=== PATIENT | female | born 1940 | race Caucasian/White ===

== ENCOUNTER 2017-11-04 16:36 | Emergency (ER) | payer MEDICARE, SELFPAY ==
--- NOTE | 2017-11-04 16:48 | DI.RAD.S_ITS ---
PROCEDURE: XR ANKLE RT MIN 3V INDICATIONS: injury TECHNIQUE: 3 views of the ankle were acquired. COMPARISON: None. FINDINGS: Bones: Moderately displaced oblique fracture of the distal fibula. Medial ankle mortise widening. No suspicious bony lesions. Soft tissues: No tibiotalar joint effusion. Achilles tendon appears normal. IMPRESSION: 1. Distal fibular fracture. 2. Deltoid ligament tear. Dictated by: Gustabo Tafoya M.D. on 11/04/2017 at 17:19 Approved by: Gustabo Tafoya M.D. on 11/04/2017 at 17:20
[2017-11-04 16:50] VITALS: BP 132/104; PULSE 76; RESP 20; TEMP 36.7; O2SAT 96
[2017-11-04 17:00] VITALS: PULSE 75
--- NOTE | 2017-11-04 17:15 | ED_ITS ---
HPI - Extremity Injury (Lower) General Chief Complaint: Extremity Injury, Upper Stated Complaint: GROUND LEVEL FALL Time Seen by Provider: 11/04/17 16:49 Source: patient Mode of arrival: EMS Limitations: no limitations History of Present Illness HPI Narrative: 77-year-old female presents after she tripped and fell down an embankment on [place] while watering her brothers and experienced severe right lower extremity pain. She did not pass out and did not hit her head. She is not on blood thinners. She complains only of pain and swelling in the right lower extremity. No previous history of injury. She is currently seeing Dr. Carter for her orthopedic needs. Related Data Home Medications Medication Instructions Recorded Confirmed HYDROCHLOROTHIAZIDE (#HCTZ) 25 mg PO QDAY #0 12/27/10 VITAMIN D (Vitamin D3) #0 12/27/10 amlodipine 10 mg PO Q DAY #0 12/27/10 aspirin 81 mg PO QDAY #0 12/27/10 pravastatin 40 mg PO QDAY #0 12/27/10 ascorbic acid (vitamin C) 1,000 mg PO DAILY #0 05/02/17 coenzyme Q10 [Co Q-10] 100 mg PO Q DAY #0 05/23/17 Previous Rx's Medication Instructions Recorded ondansetron HCl [Zofran] 4 mg PO Q6H PRN #20 tab 11/04/17 oxycodone-acetaminophen [Percocet] 2 tab PO Q4-6H PRN #20 tab 11/04/17 Allergies Allergy/AdvReac Type Severity Reaction Status Date / Time Penicillins [PENICILLINS] Allergy Unknown CHILDHOOD-UNSURE Verified 11/04/17 17: 24 OF RXN latex [LATEX] AdvReac Severe RASH, Verified 11/04/17 17:24 EDEMA, BLISTERS Review of Systems Review of Systems All systems reviewed & are unremarkable except as noted in HPI and below Constitutional Denies chills, Denies fever(s), Denies lethargy and Denies weakness Eyes Denies change in vision, Denies eye discharge, Denies irritation and Denies loss of vision ENT Ears, Nose, Mouth, and Throat: Denies change in voice, Denies neck pain and Denies sore throat Cardiovascular Denies chest pain, Denies irregular heart rhythm, Denies lightheadedness, Denies palpitations, Denies dyspnea, Denies dyspnea on exertion and Denies orthopnea Respiratory Denies cough, Denies dyspnea, Denies dyspnea on exertion and Denies wheezing Gastrointestinal Gastrointestinal: Denies abdominal pain, Denies change in bowel habits, Denies diarrhea, Denies nausea and Denies vomiting Genitourinary Denies hematuria, Denies flank pain, Denies urinary incontinence and Denies urinary urgency Musculoskeletal Denies neck pain Comments: Right ankle pain and swelling Integumentary/Breasts Denies pruritus, Denies erythema, Denies rash and Denies wounds Neurologic Denies confusion, Denies loss of vision and Denies weakness Psychiatric Denies anxiety, Denies confusion, Denies depression, Denies homicidal ideation and Denies suicidal ideation Endocrine Denies palpitations Hematologic/Lymphatic Denies easy bruising Allergic/Immunologic Denies wheezing [facility] Social History Smoking Status: Never smoker Exam Initial Vital Signs Initial Vital Signs: Vital Signs Temperature 98.1 F 11/04/17 16:50 Pulse Rate 76 11/04/17 16:50 Respiratory Rate 20 11/04/17 16:50 Blood Pressure 132/104 H 11/04/17 16:50 Pulse Oximetry 96 11/04/17 16:50 Const General: cooperative and well developed Nutritional Appearance: well nourished Orientation: alert, awake, oriented x3 and not confused HENCO Head: normocephalic and atraumatic Ears: external ears normal and TM's normal bilaterally Nose: external nose normal and No nasal discharge Face and sinus: sinuses nontender, face symmetric, no sinus tenderness and No dry mucous membranes Mouth: oral mucosae normal and moist mucous membranes Teeth and gingiva: dentition normal Throat: tonsils normal and uvula midline Eyes General: appearance normal, both eyes and all related structures Eyelids: eyelids normal Conjunctivae: conjunctivae normal Sclera: sclerae normal Pupils: PERRL EOM: EOM intact bilaterally Neck Neck: normal visual inspection, trachea midline, No lymphadenopathy, No midline deformity and No JVD Lymphatic: No lymphedema Chest Chest: normal inspection of the chest Resp Effort & Inspection: normal respiratory effort, able to speak in complete sentences, no respiratory distress and no use of accessory muscles Auscultation: clear to auscultation bilaterally, no rales, no rhonchi and no wheezes Cardio Rate: regular rate Rhythm: regular rhythm Heart Sounds: no click, no gallops, no murmurs and no rubs Pulses: normal peripheral pulses GI Inspection: non-distended Palpation: soft, no hepatosplenomegaly, No guarding, No pulsatile mass and No tender Auscultation: normal bowel sounds Back/Spine/Pelvis Back: No CVA tenderness Cervical Spine: cervical ROM normal and No pain with cervical ROM Thoracic/Lumbar Spine: thoracic and lumbar spine normal to inspection Skin General: no rashes or lesions noted, No jaundice and No petechiae Neuro General: alert, oriented x3, gait normal and no focal motor deficits Cranial Nerves: CN's II-XI intact bilaterally Speech: speech normal Motor: strength 5/5 throughout Sensory Exam: no sensory deficits noted Extrem Other: Right ankle swelling and tenderness of bilateral malleoli. Painful range of motion of the ankle. No obvious deformity. Bilateral bruising present. Distally she is neurologically and vascularly intact. 2/4 dorsalis pedis and posterior tib pulses are palpable. She is able to move her toes, there are no sensory deficits Psych Appearance: well kempt Mental Status: mental status grossly normal Attitude: cooperative Thought Content: normal and suicidality Judgment: judgment good Course Orders Ordered: ED Orders 11/04/17 16:48 XR ankle RT min 3V Stat Discontinued Medications Hydrocodone Bitart/Acetaminophen (Vernon 10/325) 1 tab PO NOW ONE Stop: 11/04/17 17:16 Hydrocodone Bitart/Acetaminophen (Vernon 5/325) 2 tab PO NOW ONE Stop: 11/04/17 17:30 Last Admin: 11/04/17 17:32 Dose: 2 tab Ketorolac Tromethamine (Toradol) 30 mg IM NOW ONE Stop: 11/04/17 18:16 Ondansetron HCl (Zofran Odt) 4 mg PO NOW ONE Stop: 11/04/17 17:16 Last Admin: 11/04/17 17:27 Dose: 4 mg Oxycodone/Acetaminophen (Percocet 5/325) 2 tab PO NOW ONE Stop: 11/04/17 18:16 Consultations Consultation #1: After paging 3 times, Dr. Rhona Chandler returned my call, and does feel the patient can be safely discharged with a stirrup splint with posterior component as long as there is no sign of dislocation. Patient prefers to have surgery performed by Dr. Carter. Patient was rechecked shortly after and complains that she is still having pain. Given Toradol and Percocet. Discussed discharge planning. Time: 18:21 Vital Signs - 8 hr 11/04/17 16:50 11/04/17 17:00 Temperature 98.1 F Pulse Rate 76 Pulse Rate [Right Dorsalis Pedis] 75 Respiratory Rate 20 Blood Pressure 132/104 H Pulse Oximetry 96 MDM - Extremity Injury (Lower) Differential Diagnosis Likely ankle sprain and strain and ankle fracture Medical Records Attestation: I reviewed the patient's medical records. Imaging Data ankle xray: Radiologist's impression: PROCEDURE: XR ANKLE RT MIN 3V INDICATIONS: injury TECHNIQUE: 3 views of the ankle were acquired. COMPARISON: None. FINDINGS: Bones: Moderately displaced oblique fracture of the distal fibula. Medial ankle mortise widening. No suspicious bony lesions. Soft tissues: No tibiotalar joint effusion. Achilles tendon appears normal. IMPRESSION: 1. Distal fibular fracture. 2. Deltoid ligament tear. Dictated by: Gustabo Tafoya M.D. on 11/04/2017 at 17:19 Approved by: Gustabo Tafoya M.D. on 11/04/2017 at 17:20 [facility] Narrative Medical decision making narrative: 77-year-old female presents after mechanical fall. She was flighted in from [place]. I discussed staying overnight and having surgery performed versus having it done follow up with Dr. Carter. Patient would like to see Dr. Carter. Discussed with Dr. Chandler who is agreeable that with proper splinting patient can go home. Advised elevation of the leg and follow up on Monday. She is distally neurologically and vascular intact Discharge Plan Departure Patient Disposition: Home, Self-Care Clinical Impression: Ankle fracture, Fall Instructions: DI for Ankle Fracture Activity Restrictions/Additional Instructions: Thank you for trusting us with your care today. You have an ankle fracture that will require surgery. Wear the splint made for you today and continue nonweightbearing until your orthopedic followup. Use a wheelchair or walker as needed for support. Take percocet as needed for pain. Call Dr. Lomeli on Monday to arrange a followup. Keep your leg elevated above your heart while at home. Prescriptions: New ondansetron HCl [Zofran] 4 mg tablet 4 mg PO Q6H PRN (Reason: nausea and vomiting) Qty: 20 RF: 0 oxycodone-acetaminophen [Percocet] 5-325 mg tablet 2 tab PO Q4-6H PRN (Reason: pain) Qty: 20 RF: 0 No Action amlodipine 10 MG tablet 10 mg PO Q DAY Qty: 0 RF: 0 aspirin 81 MG tablet,delayed release (DR/EC) 81 mg PO QDAY Qty: 0 RF: 0 VITAMIN D (Vitamin D3) Qty: 0 RF: 0 pravastatin 40 MG tablet 40 mg PO QDAY Qty: 0 RF: 0 HYDROCHLOROTHIAZIDE (#HCTZ) 25 mg PO QDAY Qty: 0 RF: 0 ascorbic acid (vitamin C) 500 mg Tablet 1,000 mg PO DAILY Qty: 0 RF: 0 coenzyme Q10 [Co Q-10] 100 MG capsule 100 mg PO Q DAY Qty: 0 RF: 0 Referrals: Brett Carter MD [Physician] -
[2017-11-04] MEDS: ONDANSETRON 4 MG ODT PO (17:27)
[2017-11-04] MEDS: HYDROCODONE/ACET 5/325 TABLET 2 TAB PO (17:32)
[2017-11-04] MEDS: OXYCODONE/ACETAMINOPHEN 5/325 TABLET 2 TAB PO (18:52)
[2017-11-04] MEDS: OXYCODONE/APAP 5/325 PREPACK 1 BOTTLE MISC (20:00)
--- NOTE | 2017-11-04 20:06 | PC.NURSE ---
dr. nunez verified placement and sensation of splint.
[2017-11-04 20:09] VITALS: BP 134/70; PULSE 78; RESP 18; O2SAT 98
== END 2017-11-04 19:10 | disposition home or self-care (01) ==
PROVIDERS: Emergency Provider Emergency Medicine
DX: S82.831A Other fracture of upper and lower end of right fibula, initial encounter for closed fracture (principal); S93.421A Sprain of deltoid ligament of right ankle, initial encounter; W19.XXXA Unspecified fall, initial encounter
CPT/HCPCS: 29505; 29515; 36591; 73610; 99282; 99283

== ENCOUNTER → 2019-03-15 10:44 | Outpatient (CLI) | payer MEDICARE, SELFPAY ==
--- NOTE | 2019-03-15 | DI.MRI.S_ITS ---
PROCEDURE: MR KNEE RT W CON INDICATIONS: Right knee internal derangement TECHNIQUE: After the administration of 50 mL of dilute intra-articular Gadolinium contrast, sagittal T1 spin echo with fat saturation and PD fast spin echo with fat saturation, coronal T1 spin echo with and without fat saturation, coronal T2 fast spin echo with fat saturation, axial PD fast spin echo with fat saturation through the knee. COMPARISON: [facility], CR, XR KNEE ARTHRITIC SERIES RT, 04/30/2018, 9:20. FINDINGS: Image quality: Excellent. Menisci: Poorly defined tear involving the body and posterior horn of the medial meniscus, with partial extrusion. Lateral meniscus appears intact. Cruciate ligaments: The anterior and posterior cruciate ligaments appear intact. Medial structures: The medial collateral ligament appears intact. Semimembranosus tendon appears mildly thickened with intrasubstance T2 hyperintensity. Visualized portions of the pes anserinus tendons appear normal. No abnormal bursal fluid. Lateral structures: The lateral collateral ligament demonstrates thickening and intrasubstance signal change in keeping with low grade sprain, statistically chronic, although technically age indeterminate. The biceps femoris tendon appears intact. Popliteus tendon grossly unremarkable. Iliotibial band appears intact. Anterior structures: Quadriceps tendon intact. Medial and lateral patellofemoral ligaments intact. There is mild patellar tendinopathy. Prepatellar and superficial infrapatellar subcutaneous edema/fluid. Bone and cartilage: No focal marrow contusion or discrete low signal fracture line. Within the medial compartment, diffuse partial-thickness loss of the tibial cartilage and near full-thickness central femoral cartilage loss Within the lateral compartment, fissuring and surface fraying of the central weightbearing tibial cartilage. Mild diffuse partial-thickness loss of the femoral cartilage Within the patellofemoral compartment, near full-thickness loss of curvature alignment and medial patellar facet and partial-thickness loss of the remaining patellar cartilage. Diffuse mild partial-thickness loss of the femoral trochlear cartilage Joint space: No Barnett's cyst. Normal appearing synovial plicae are incidentally noted. No intra-articular bodies. IMPRESSION: Poorly defined tear involving the body and posterior horn of the medial meniscus with partial extrusion. Semimembranosus insertional tendinopathy. Mild patellar tendinopathy and adjacent soft tissue edema/fluid. Mild joint degeneration as above. No evidence of intra-articular loose bodies. Dictated by: Vishnu Yates M.D. on 03/15/2019 at 13:55 Approved by: Vishnu Yates M.D. on 03/15/2019 at 14:05
--- NOTE | 2019-03-15 | DI.RAD.S_ITS ---
PROCEDURE: FL KNEE INJECTION MR/CT RT INDICATIONS: Right knee internal derangement TECHNIQUE: The indications, alternatives, benefits, risks, and complications of the procedure were explained to the patient. Written informed consent was obtained and placed in the chart. The knee was examined fluoroscopically, and a site chosen for knee joint injection. The skin was prepped and draped in a sterile fashion, and 1% Lidocaine infiltrated from the skin down to the articular surface. A hypodermic needle was then introduced into the joint and iodinated contrast media was instilled to confirm the intra-articular needle tip placement. This was followed by approximately 50 mL dilute solution of a gadolinium containing MR contrast agent. The needle was removed and a bandage was applied. An Danish wrap was then applied around the knee joint to keep the contrast from collecting in the suprapatellar recess. The patient experienced no complications throughout the procedure and left the fluoroscopic suite in no apparent distress. FINDINGS: Single fluoroscopic spot image demonstrates intra-articular location to injected iodinated contrast. IMPRESSION: Successful fluoroscopically guided administration of dilute Gadolinium solution into the knee joint for MR arthrogram. Dictated by: Vishnu Yates M.D. on 03/15/2019 at 15:42 Approved by: Vishnu Yates M.D. on 03/15/2019 at 15:43
== END ==
PROVIDERS: PCP Family Medicine; Visit Provider Orthopaedic Surgery
DX: S83.241A Other tear of medial meniscus, current injury, right knee, initial encounter (principal); M17.11 Unilateral primary osteoarthritis, right knee; M67.961 Unspecified disorder of synovium and tendon, right lower leg
CPT/HCPCS: 27369; 73722; 77002

== ENCOUNTER → 2021-01-01 09:46 | Outpatient (CLI) | payer MEDICARE, SELFPAY ==
--- NOTE | 2021-01-01 09:49 | DI.US.S_ITS ---
ULTRASOUND OF LEFT BREAST: 01/01/2021 CLINICAL: Palpable left axilla lump. Comparison is made to exams dated: 04/22/2014 mammogram, 04/22/2014 ultrasound biopsy, 04/07/2014, 03/31/2014 mammogram, and 03/29/2013 mammogram - [facility]. Color flow and real-time ultrasound of the left breast were performed. Umanzor scale images of the real-time examination were reviewed. The patient is status post mastectomy left breast. There is a 6.1 cm x 2.9 cm x 3.5 cm wider than tall oval mass in the left axilla. This oval mass is hypoechoic. This correlates as palpated and with area of clinical concern. Color flow imaging demonstrates that there is vascularity present. IMPRESSION: SUSPICIOUS OF MALIGNANCY The 6.1 cm x 2.9 cm x 3.5 cm wider than tall oval mass is consistent with a suspicious enlarged lymph node and is suspicious of malignancy. An ultrasound guided biopsy is recommended. Findings and recommendations were discussed with the patient by Dr. Richter during today's examination. This exam was interpreted at Station ID: [id number]. Electronically Signed By: Brayden Mccormick M.D. aty/:01/01/2021 13:57:43 letter sent: Biopsy Required Ultrasound BI-RADS: 4 Suspicious for malignancy
[2021-01-01 10:15] LABS: Add Manual Diff / Slide Review NO; Basophils Absolute Auto 100 /uL (0-100); Basophils Percent Auto 1.1 % (0-2); Eosinophils Absolute Auto 100 /uL (0-450); Eosinophils Percent Auto 1.7 % (2-4); Hematocrit 40.8 % (36-46); Hemoglobin 13.8 g/dL (12.0-16.0); Lymphocytes Absolute Auto 2000 /uL (1100-4500); Lymphocytes Percent Auto 26.1 % (25-40); Mean Corpuscular HGB Conc 33.9 % (30-36); Mean Corpuscular Hemoglobin 29.7 PG (26-34); Mean Corpuscular Volume 87.7 fL (80-100); Monocytes Absolute Auto 700 /uL (0-900); Monocytes Percent Auto 8.8 % (3-14); Neutrophils Absolute Auto 4800 /uL (1500-7000); Neutrophils Percent Auto 62.3 % (50-75); Platelet Count 782 X10^3/uL (150-400); Red Blood Cell Count 4.66 X10^6/uL (4.0-5.2); Red Cell Distribution Width 13.5 % (11.6-14.8); White Blood Cell Count 7.7 X10^3/uL (4.5-11.0)
[2021-01-01 10:31] LABS: Platelet Estimate Increased on smear
[2021-01-01 10:36] LABS: Alanine Aminotransferase 24 IU/L (<35); Albumin 4.2 g/dL (3.5-5.0); Albumin Globulin Ratio 1.2 (1.0-2.8); Alkaline Phosphatase 83 U/L (38-126); Aspartate Aminotransferase 26 IU/L (14-36); BUN Creatinine Ratio 27.4 (6-22); Bilirubin Total 0.4 mg/dL (0.2-1.3); Blood Urea Nitrogen 17 mg/dL (7-17); Calcium 9.8 mg/dL (8.4-10.2); Carbon Dioxide 30 mmol/L (22-32); Chloride 104 mmol/L (98-107); Estimated Glomerular Filt Rate > 60.0 mL/min (>60); Globulin 3.4 g/dL (1.7-4.1); Glucose 110 mg/dL (80-110); HEMOLYSIS < 15 (0-50); Potassium 3.8 mmol/L (3.4-5.1); Sodium 140 mmol/L (137-145); Total Protein 7.6 g/dL (6.3-8.2)
[2021-01-01 10:37] LABS: Erythrocyte Sedimentation Rate 23 MM/HR (0-20)
[2021-01-01 11:11] LABS: Ferritin 30 ng/mL (11-264)
[2021-01-02 06:43] LABS: CA 15-3 10.1 U/mL (0.0-25.0)
== END ==
PROVIDERS: PCP Family Medicine; Referring Provider Internal Medicine Medical Oncology; Visit Provider Internal Medicine Medical Oncology
DX: D47.3 Essential (hemorrhagic) thrombocythemia (principal); N63.32 Unspecified lump in axillary tail of the left breast; Z85.3 Personal history of malignant neoplasm of breast; Z90.12 Acquired absence of left breast and nipple
CPT/HCPCS: 36415; 76882; 80053; 81270; 81402; 82728; 85025; 85651; 86300

== ENCOUNTER → 2021-01-15 12:53 | Outpatient (CLI) | payer MEDICARE, SELFPAY ==
--- NOTE | 2021-01-15 | PATH_ITS ---
[facility] Accession Number: [id number] . 01 Material submitted: . AXILLARY - LEFT AXILLARY MASS . 01 Clinical history: . LOCALIZED SWELLING, MASS AND LUMP, LEFT UPPER LIMB . 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 See comment for predictive marker results. [facility] 01/20/2021 1657 Local . 01 Comment: Predictive marker immunohistochemical studies are performed on block A1 with the invasive carcinoma showing the following results: . Estrogen receptor (SP1): Positive (greater than 95%, strong intensity). Progesterone receptor (1E2): Positive (greater than 95%, strong intensity). Her2 (4B5): Negative for overexpression (0). . An immunostain to the breast marker, BAMBI-3, is performed to confirm the clinical suspicion of metastatic breast carcinoma and shows uniform expression. . Internal controls for ER and VA are not present; false negative results cannot be excluded. Cold ischemic time and formalin fixation time is not provided. The scoring criteria for breast biomarkers by immunohistochemistry is based on the ASCO/CAP guidelines (Preston AC et al, J Clin Oncol: 2018 Dec 26;36(20):0136-2126 and Neeraj ME et al, Arch Pathol Lab Med: 2009;134(6):907-22). Deparaffinized sections of formalin fixed tissue (along with appropriate positive controls) are incubated with the above antibody(s). Using the automated [place] stainer, tissue is incubated with the designated antibody which is then localized by a non-biotin, dual polymer detection system. The external controls are reviewed for appropriate reactivity and found to be adequate. Results on the target cell population are indicated above. These tests have not been validated on decalcified tissue. This test was developed and its performance characteristics determined by [employer]. It has not been cleared or approved by the U.S. Food and Drug Administration. The FDA has determined that such clearance or approval is not necessary. This test is used for clinical purposes. It should not be regarded as investigational or for research. . The preliminary results of this case are discussed by Dr. Ta with Dr. Griffin on 01/20/2021 at 12:10 PM. He confirms that the patient has a history of a left breast carcinoma, diagnosed a few years ago. . 01 Electronically signed: . Carol Ann Ta MD, Pathologist NPI- [id number] . 01 Gross description: . The specimen is received in formalin, labeled soft tissue mass, and consists of multiple magana cores of soft tissue ranging from 0.2 cm to 1.5 cm in length by 0.1 cm in diameter. The specimen is entirely submitted in cassette A1. (EA:[id number]) /[facility] 01/16/[address] [place] [address] . 01 Pathologist provided ICD-10: R22.32 . 01 CPT . 622656, [id number], 426089, 054882, [id number] Performed at: 01 [facility] [address] [place] [address] [address] [facility], [place], [place] [id number] MD Brett Mena MD Phone: [phone]
--- NOTE | 2021-01-15 | DI.MG.S_ITS ---
UNILATERAL LEFT DIGITAL DIAGNOSTIC MAMMOGRAM 3D/2D POST-PROCEDURE IMAGING FOR MARKER PLACEMENT: 01/15/2021 CLINICAL: Left post clip. Comparison is made to exams dated: 01/01/2021 ultrasound, 04/22/2014 mammogram, and 04/22/2014 ultrasound [facility]. The tissue of left breast is predominantly fatty. There is a marker clip in the appropriate position in the left axillary tail which is only partially visualized due to location. This marker clip placement is at the biopsy site. IMPRESSION: POST PROCEDURE MAMMOGRAM FOR MARKER PLACEMENT There was a successful marker clip placement in the left axillary tail. This exam was interpreted at Station ID: [id number]. NOTE: For mammograms, a report in lay terms will be sent to the patient. Approximately 15% of breast malignancies will not be visualized mammographically. In the management of a palpable breast mass, a negative mammogram must not discourage biopsy of a clinically suspicious lesion. Electronically Signed By: Vishun silva/:01/15/2021 16:06:29 ACR BI-RADS Category Post-procedure mammogram for marker placement
--- NOTE | 2021-01-15 12:56 | DI.US.S_ITS ---
ULTRASOUND GUIDED BIOPSY LEFT BREAST WITH MARKING DEVICE INSERTED AND POST DIGITAL MAMMOGRAPHIC IMAGIN01/15/2021 CLINICAL: Left axillary node biopsy. PATIENT CONSENT: Risks (minor bleeding, infection, vasovagal reaction and repeat procedure), benefits and alternatives were explained to the patient and written informed consent was obtained. Correlation is made to exam dated: 01/01/2021 [facility]. An ultrasound guided biopsy using real-time ultrasound was performed for the 6.1 cm x 2.9 cm x 3.5 cm mass located in the left axillary tail. The skin was prepped in the usual manner. Local anesthetic was administered to the access site. A small incision was made in the breast. The abnormality was approached from the lateral aspect. A biopsy needle was placed adjacent to the abnormality under ultrasound guidance. Once the needle was documented to be in the correct location, four specimens were obtained using a BARD biopsy device. The patient received additional local anesthetic during the procedure. A vision clip was inserted into the biopsy cavity. The specimens were sent to the laboratory for pathological analysis. IMPRESSION: ULTRASOUND GUIDED BIOPSY MALIGNANT Ultrasound guided biopsy of the 6.1 cm mass in the left axillary tail was successful. Pathology demonstrate Metastatic adenocarcinoma. Pathology results are concordant with imaging findings. A surgical/oncologic consultation is recommended. This exam was interpreted at Station ID: [id number]. Vishnu silva,slc/:01/21/2021 11:55:04
== END ==
PROVIDERS: PCP Family Medicine; Referring Provider Internal Medicine Medical Oncology; Visit Provider Internal Medicine Medical Oncology
DX: C50.612 Malignant neoplasm of axillary tail of left female breast (principal); Z17.0 Estrogen receptor positive status [ER+]
CPT/HCPCS: 38505; 76942; 77065

== ENCOUNTER → 2021-02-02 10:34 | Outpatient (CLI) | payer MEDICARE, SELFPAY ==
--- NOTE | 2021-02-02 | DI.MG.S_ITS ---
UNILATERAL RIGHT DIGITAL SCREENING MAMMOGRAM 3D/2D WITH CAD POST MASTECTOMY WITH AUGMENTATION: 02/02/2021 CLINICAL: Routine screening. Breast cancer. Comparison is made to exams dated: 03/31/2014 mammogram and 03/29/2013 mammogram - [facility]. The tissue of right breast is predominantly fatty. Current study was also evaluated with a Computer Aided Detection (CAD) system. Right breast implant is present. No significant masses, calcifications, or other findings are seen in the breast. IMPRESSION: NEGATIVE There is no mammographic evidence of malignancy. A 1 year screening mammogram is recommended. This exam was interpreted at Station ID: [id number]. NOTE: For mammograms, a report in lay terms will be sent to the patient. Approximately 15% of breast malignancies will not be visualized mammographically. In the management of a palpable breast mass, a negative mammogram must not discourage biopsy of a clinically suspicious lesion. Electronically Signed By: Raulito artis/milind:02/02/2021 11:22:09 letter sent: Normal Exam ACR BI-RADS Category 1: Negative [id number]
== END ==
PROVIDERS: PCP Family Medicine; Referring Provider Family Medicine; Visit Provider Family Medicine
DX: Z12.31 Encounter for screening mammogram for malignant neoplasm of breast (principal); Z85.3 Personal history of malignant neoplasm of breast
CPT/HCPCS: 77063; 77067

== ENCOUNTER → 2023-04-25 08:09 | Outpatient (CLI) | payer MEDICARE, SELFPAY ==
--- NOTE | 2023-04-25 | DI.MG.S_ITS ---
UNILATERAL RIGHT DIGITAL SCREENING MAMMOGRAM 3D/2D WITH CAD POST MASTECTOMY WITH AUGMENTATION: 04/25/2023 CLINICAL: Routine screening. Personal history of left breast cancer. family history of breast cancer. Comparison is made to exams dated: 02/02/2021 mammogram, 01/15/2021 mammogram, and 04/22/2014 mammogram - [facility]. The right breast is almost entirely fatty (category a/<25% glandular tissue). Current study was also evaluated with a Computer Aided Detection (CAD) system. Right breast implant is stable. No significant masses, calcifications, or other findings are seen in the breast. There has been no significant interval change. IMPRESSION: NEGATIVE There is no mammographic evidence of malignancy. A 1 year screening mammogram is recommended. This exam was interpreted at Station ID: [id number]. NOTE: For mammograms, a report in lay terms will be sent to the patient. Approximately 15% of breast malignancies will not be visualized mammographically. In the management of a palpable breast mass, a negative mammogram must not discourage biopsy of a clinically suspicious lesion. Electronically Signed By: Lb hensley/milind:04/25/2023 13:31:46 letter sent: Normal Exam ACR BI-RADS Category 1: Negative [id number]
== END ==
PROVIDERS: PCP Family Medicine; Referring Provider Family Medicine; Visit Provider Family Medicine
DX: Z12.31 Encounter for screening mammogram for malignant neoplasm of breast (principal); Z85.3 Personal history of malignant neoplasm of breast; Z80.3 Family history of malignant neoplasm of breast
CPT/HCPCS: 77063; 77067

== ENCOUNTER → 2024-05-07 07:48 | Outpatient (CLI) | payer MEDICARE, SELFPAY ==
--- NOTE | 2024-05-07 | DI.MG.S_ITS ---
UNILATERAL RIGHT DIGITAL SCREENING MAMMOGRAM 3D/2D WITH CAD POST MASTECTOMY: 05/07/2024 CLINICAL: Routine screening. Personal history of left breast cancer. Comparison is made to exams dated: 04/25/2023 mammogram, 02/02/2021 mammogram, and 03/31/2014 mammogram - [facility]. The breasts are almost entirely fatty (category a/<25% glandular tissue). Current study was also evaluated with a Computer Aided Detection (CAD) system. There are benign post operative findings in the right breast. No significant masses, calcifications, or other findings are seen in the breast. There has been interval removal of prior implant. IMPRESSION: BENIGN There is no mammographic evidence of malignancy. A 1 year screening mammogram is recommended. This exam was interpreted at Station ID: [id number]. NOTE: For mammograms, a report in lay terms will be sent to the patient. Approximately 15% of breast malignancies will not be visualized mammographically. In the management of a palpable breast mass, a negative mammogram must not discourage biopsy of a clinically suspicious lesion. Electronically Signed By: Remedios Jauregui M.D., Ph.D. eb/:05/07/2024 09:14:05 letter sent: Normal Exam ACR BI-RADS Category 2: Benign
== END ==
PROVIDERS: PCP Family Medicine; Referring Provider Family Medicine; Visit Provider Family Medicine
DX: Z12.31 Encounter for screening mammogram for malignant neoplasm of breast (principal); Z85.3 Personal history of malignant neoplasm of breast; R92.313 Mammographic fatty tissue density, bilateral breasts
CPT/HCPCS: 77063; 77067